=== PATIENT | female | born 1995 | race Two or more races ===

== ENCOUNTER 2023-02-28 19:42 | Emergency (ER) | payer OTHER ==
[~2023-02-28] VITALS: Ht 175.3 cm; Wt 117.9 kg
[~2023-02-28 19:42] MED LIST: CARNITINE250 MG PO; DELSYM30 MG/5 M1 PO; DEPAKOTE ER250 MG PO; KEPPRA500 MG; LEVOCARNITINE330 MG; ZYRTEC1 MG/ML PO
== END 2023-02-28 22:28 | disposition home or self-care (01) ==
LOC: ER 19:42
DX: S90.01XA Contusion of right ankle, initial encounter (principal); X50.1XXA Overexertion from prolonged static or awkward postures, initial encounter; Y93.9 Activity, unspecified; Y92.9 Unspecified place or not applicable; Y99.9 Unspecified external cause status